=== PATIENT | male | born 2000 | race Caucasian/White ===

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

== ENCOUNTER → 2022-01-14 | Outpatient (CLI) | payer BC | LOC: ORTHO 08:17 | PROVIDERS: ATTEND Orthopaedic Surgery | DX: S81.011A Laceration without foreign body, right knee, initial encounter (principal); X58.XXXA Exposure to other specified factors, initial encounter | CPT/HCPCS: 99213 ==

== ENCOUNTER 2022-01-23 07:59 | Emergency (ER) | payer BC ==
[~2022-01-23] VITALS: Ht 182 cm; Wt 115.0 kg
[2022-01-23] MEDS ORDERED: KETOROLAC 30 MG/ML VIAL IM STA (08:09)
--- NOTE | 2022-01-23 08:13 | ED Respiratory ---
General Chief Complaint: Respiratory Problems Stated Complaint: LT FOOT INJ/SOA Nursing Triage Note: PT AMB TO RM 6 PT CO OF SOA. STATES WOKE UP THIS AM W SOA, PT STATES STEPPED ON SOMETHING LAST PM WENT THRU SOLE OF SHOE. WENT TO BED AND WOKE UP SOA. PT SL HYPERVENTILATING Source: patient Exam Limitations: no limitations History of Present Illness Date Seen by Provider: Jan 23, 2022 Time Seen by Provider: 08:01 Initial Comments 21-year-old male with no pertinent past medical history coming in after he was outside yesterday, stepped on a very sharp object that went through his shoe and his left foot. Having constant, throbbing, moderate pain in his left foot. Difficult to walk on it which makes the pain worse. Has not taken anything for the pain as of yet. Throughout the night he started to feel more short of breath. He is unable to really pinpoint what he is feeling. Is never felt this way before. Denies any rash, vomiting, diarrhea, chest pain, abdominal pain, weakness, numbness, or any other concerns. Is up-to-date on his tetanus vaccine. Allergies and Home Medications Allergies Coded Allergies: No Known Drug Allergies (Unverified , 12/13/21) Patient Home Medication List Home Medication List Reviewed: Yes Cephalexin (Cephalexin) 500 Mg Tablet, 500 MG PO QID Prescribed by: GUILLAUME LUTZ on 12/13/21 1624 Cephalexin (Cephalexin) 500 Mg Tablet, 500 MG PO QID Prescribed by: KALIN KIM on 01/23/22 0908 Hydrocodone/Acetaminophen (Hydrocodone-Acetamin 5-325 mg) 5 Mg-325 Mg Tablet, 1 TAB PO Q4H PRN for PAIN-MODERATE (5-7) Prescribed by: GUILLAUME LUTZ on 12/13/21 1624 Review of Systems Review of Systems Constitutional: No fever EENTM: no symptoms reported Respiratory: see HPI Cardiovascular: no symptoms reported Gastrointestinal: no symptoms reported Genitourinary: no symptoms reported Musculoskeletal: see HPI Skin: no symptoms reported Psychiatric/Neurological: No Symptoms Reported Hematologic/Lymphatic: No Symptoms Reported Immunological/Allergic: no symptoms reported All Other Systems Reviewed Negative Unless Noted: Yes Past Bdkixzv-Hognke-Yucahi Hx Patient Social History Tobacco Use?: Yes Smoking Status: Current Someday Smoker Substance use?: No Alcohol Use?: No Pt feels they are or have been: No Immunizations Up To Date First/Initial COVID19 Vaccinat: 2020 Second COVID19 Vaccination Roosevelt: 2020 COVID19 Vaccine Tie Puller: CANDIDOMykel Past Medical History Surgeries: Yes Orthopedic Physical Exam Vital Signs - First Documented 01/23/22 08:00 Temp 36.2 Pulse 99 Resp 18 B/P (MAP) 173/72 (105) Pulse Ox 99 Capillary Refill : Less Than 3 Seconds Height: '" Weight: lbs. oz. kg; 34.00 BMI Method: General Appearance: WD/WN, no apparent distress Eyes: Bilateral Eye Normal Inspection HEENT: PERRL/EOMI, normal ENT inspection, pharynx normal Neck: non-tender, full range of motion, supple, normal inspection Respiratory: chest non-tender, lungs clear, normal breath sounds, no respiratory distress, no accessory muscle use Cardiovascular: regular rate, rhythm, no edema, no murmur Gastrointestinal: normal bowel sounds, non tender, soft; No distended, No guarding, No rebound Extremities: normal range of motion, no pedal edema, no calf tenderness, normal capillary refill, other (Punctate wound to the plantar surface of the left foot with no visible foreign body, tender to palpation, no redness/swelling/drainage, full range of motion of foot with normal neurovascular exam) Neurologic/Psychiatric: no motor/sensory deficits, alert, normal mood/affect Skin: normal color, warm/dry Lymphatic: no adenopathy Progress/Results/Core Measures Suspected Sepsis SIRS Temperature: Pulse: 99 Respiratory Rate: 18 Blood Pressure 173 /72 Mean: 105 Results/Orders My Orders Orders - KALIN KIM MD Diphenhydramine Tablet (Benadryl Tablet) (01/23/22 08:15) Famotidine Tablet (Pepcid Tablet) (01/23/22 08:15) Dexamethasone Oral Soln (Ed) (Decadron I (01/23/22 08:09) Ketorolac Injection (Toradol Injection) (01/23/22 08:09) Chest Pa/Lat (2 View) (01/23/22 08:09) Foot, Left, 3 Views (01/23/22 08:09) Dipht,Pertuss(Acell),Tet Adult (Boostrix (01/23/22 09:15) Medications Given in ED Current Medications Medications Dose Ordered Sig/Marcello Route Start Time Stop Time Status Last Admin Dose Admin Diphenhydramine HCl 25 mg ONCE ONCE PO 01/23/22 08:15 01/23/22 08:16 DC 01/23/22 08:16 25 MG Diphtheria/ Tetanus/Acell Pertussis 0.5 ml ONCE ONCE IM 01/23/22 09:15 01/23/22 09:16 DC 01/23/22 09:30 0.5 ML Famotidine 20 mg ONCE ONCE PO 01/23/22 08:15 01/23/22 08:16 DC 01/23/22 08:16 20 MG Vital Signs/I&O 01/23/22 01/23/22 08:00 09:33 Temp 36.2 Pulse 99 98 Resp 18 18 B/P (MAP) 173/72 (105) 114/80 Pulse Ox 99 97 Capillary Refill : Less Than 3 Seconds Blood Pressure Mean: 105 Progress Note : Progress Note 21-year-old male with above history coming in after he stepped on an object that went through his shoe yesterday. He thinks it is likely some type of thorn. Has a small puncture wound, no obvious foreign body on exam. X-ray of the foot with no obvious radiopaque foreign body as well, and no fracture on my interpretation. Chest x-ray obtained because of his dyspnea. This was read as normal as well. He has an oxygen saturation of 100% on room air, lungs sound clear, throat appears normal with no obvious swelling. No clinical findings of any type of anaphylaxis. Given Benadryl, steroids, and Pepcid in case there was some type of allergic component to this. Tetanus shot updated today. I believe he stable for discharge with outpatient follow-up. He was sent home with strict return precautions Diagnostic Imaging Diagonstic Imaging: Xray (chest and left foot) Comments NAME: LIN MICHELLE MED REC#: [id number] PT STATUS: REG ER : 2000 PHYSICIAN: KALIN KIM MD ADMIT DATE: 01/23/22/ER Draft Date of Exam:01/23/22 FOOT, LEFT, 3 VIEWS EXAMINATION: Left foot radiograph EXAM DATE: 01/23/2022 8:32 AM COMPARISON: None available. HISTORY: stepped on sharp object, eval for radioopaque foreign body TECHNIQUE: 3 views FINDINGS: There is no acute fracture, dislocation, or destructive osseous process. The joint spaces are normal. The soft tissues are normal. No suspicious radiopaque foreign body. IMPRESSION: 1. No acute osseous abnormality. Dictated on workstation # [id number] Dict: 01/23/22 0903 Trans: 01/23/22906 [place] [id number] Interpreted by: JUNIOR AG DO Electronically signed by: [facility] [place], [place] NAME: LIN MICHELLE [facility] REC#: [id number] PT STATUS: REG ER : 2000 PHYSICIAN: KALIN KIM MD ADMIT DATE: 01/23/22/ER Draft Date of Exam:01/23/22 CHEST PA/LAT (2 VIEW) INDICATION: Shortness of breath. PA and lateral views of the chest were obtained FINDINGS: The heart size, mediastinal configuration, and pulmonary vascularity are within normal limits. There is no pleural effusion, pneumothorax, or pneumonia. The osseous structures are unremarkable. IMPRESSION: No acute cardiopulmonary abnormality. Dictated on workstation # [id number] Dict: 01/23/22831 Trans: 01/23/[address] [facility] [id number] Interpreted by: RAMONA SWIFT MD Electronically signed by: Departure Impression Primary Impression: Puncture wound of foot Qualified Codes: S91.332A - Puncture wound without foreign body, left foot, initial encounter Disposition: 01 HOME, SELF-CARE Condition: Stable Departure-Patient Inst. Decision time for Depature: 09:07 Referrals: NO,LOCAL PHYSICIAN (PCP/Family) Primary Care Physician Patient Instructions: Wound Care ED Add. Discharge Instructions: Since we are really unsure of what went into your foot, and since it went through your shoe which are typically dirty objects, we will start you on an antibiotic for the next week. I would take your allergy medicine daily as prescribed. We are not seeing any evidence of your throat closing on exam, and your lungs are clear with your oxygen being perfect on our vital readings. It is possible he had a mild allergic component to your symptoms. We gave you a steroid which is long-acting and will help with this if that is the case Scripts Cephalexin (Cephalexin) 500 Mg Tablet 500 MG PO QID for 7 Days, #28 TAB Prov: KALIN KIM MD 01/23/22 Work/School Note: School/Childcare Release, Date Seen in the Emergency Depar tment: Jan 23, 2022 Time Dismissed from Emergency Department: 09:08 Return to School: Jan 24, 2022 Restrictions: No Restrictions Work Release Form Date Seen in the Emergency Department: Jan 23, 2022 Return to Work: Jan 25, 2022 Restrictions: No Restrictions KALIN KIM MD Jan 23, 2022 08:13
[2022-01-23] MEDS ORDERED: diphenhydrAMINE 25 MG TAB (BENADRYL) PO ONE (08:15)
[2022-01-23] MEDS ORDERED: FAMOTIDINE 20 MG (PEPCID) TABLET PO ONE (08:15)
--- NOTE | 2022-01-23 08:35 | Diagnostic Imaging Report ---
INDICATION: Shortness of breath. PA and lateral views of the chest were obtained FINDINGS: The heart size, mediastinal configuration, and pulmonary vascularity are within normal limits. There is no pleural effusion, pneumothorax, or pneumonia. The osseous structures are unremarkable. IMPRESSION: No acute cardiopulmonary abnormality. Dictated by: Dictated on workstation # [id number]
--- NOTE | 2022-01-23 09:07 | Diagnostic Imaging Report ---
EXAMINATION: Left foot radiograph EXAM DATE: 01/23/2022 8:32 AM COMPARISON: None available. HISTORY: stepped on sharp object, eval for radioopaque foreign body TECHNIQUE: 3 views FINDINGS: There is no acute fracture, dislocation, or destructive osseous process. The joint spaces are normal. The soft tissues are normal. No suspicious radiopaque foreign body. IMPRESSION: 1. No acute osseous abnormality. Dictated by: Dictated on workstation # [id number]
[2022-01-23] MEDS ORDERED: CEPH500T PO ×2 (09:08→10:37)
[2022-01-23] MEDS ORDERED: TETANUS,DIPTH,PERTUSS P/F (BOOSTRIX) 0.5 ML VIAL IM ONE (09:15)
[2022-01-23 09:33] VITALS: BP 114/80
== END 2022-01-23 09:30 | disposition home or self-care (01) ==
LOC: EDUNIT# 07:59 → ER 08:01
DX: S91.332A Puncture wound without foreign body, left foot, initial encounter (principal); F17.200 Nicotine dependence, unspecified, uncomplicated; Z23 Encounter for immunization; W26.8XXA Contact with other sharp object(s), not elsewhere classified, initial encounter
CPT/HCPCS: 71046; 73630; 90715

== ENCOUNTER 2022-07-19 01:22 | Emergency (ER) | payer BC ==
[~2022-07-19] VITALS: Ht 182.9 cm; Wt 128.4 kg
[2022-07-19] MEDS ORDERED: KETOROLAC 30 MG/ML VIAL IM STA (01:46)
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
[2022-07-19 02:59] VITALS: BP 138/89
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
== END 2022-07-19 02:59 | disposition home or self-care (01) ==
LOC: EDUNIT# 01:22 → ER 01:26
DX: S39.94XA Unspecified injury of external genitals, initial encounter (principal); Z28.310 Unvaccinated for COVID-19; Y04.8XXA Assault by other bodily force, initial encounter
CPT/HCPCS: 76870; 99282